=== PATIENT | male | born 1975 | race Caucasian/White ===

== ENCOUNTER 2024-11-15 16:26 | Emergency (ER) | payer BC, SELFPAY ==
[2024-11-15 16:26] VITALS: BMI 31.0
[2024-11-15 16:29] VITALS: BP 102/83
[2024-11-15] MEDS: PERCOCET 5/325 1 TABLET PO (17:38)
[2024-11-15] MEDS: TORADOL 30 MG IM (17:40)
--- NOTE | 2024-11-15 18:38 | ED.GENMED ---
History of Present Illness
<Alfonso Olivera Jr., PA-C - Last Filed: 11/15/24 19:07>
General
Chief Complaint: Musculo-Skeletal Complaint
Source: patient
Exam Limitations: none
Time Seen by Provider: 11/15/24 17:09
Nursing documentation reviewed up to this point in time: agreed with
History of Present Illness
History of Present Illness:
49-year-old male past medical history of hyperlipidemia presenting to the emergency department today with concerns of left-sided rib discomfort after falling through his attic floor hitting the rafters with his left ribs and also left arm. Pain is
mainly to the left lateral rib area. Denies any significant chest pain shortness of breath nausea vomiting no head trauma no neck pain.
Past History
<Alfonso Olivera Jr., PA-C - Last Filed: 11/15/24 19:07>
Past History
ED Past Medical History: Hypercholesterolemia and Psychiatric (anxiety-no meds)
ED Past Surgical History: None
Social History
Tobacco: Non-smoker
Alcohol: Occasional
Personal:
Living: with family
Employment: Employed
Review of Systems
<NORTH Lion Jr. Last Filed: 11/15/24 19:07>
Review of Systems
Allergies reviewed?: Yes
All Other Systems: ROS reviewed and negative except as documented in HPI and ROS
Phy Exam
<Alfonso Olivera Jr., PA-C - Last Filed: 11/15/24 19:07>
Physical Exam
Physical Exam:
GENERAL: Alert , in no apparent distress
EYE: pupils equal and reactive
NECK: Supple, no significant adenopathy.
ENT: o/p clr, mmm.
CARDIAC: Regular rate and rhythm .
LUNGS: Left lateral axillary rib pain slight abrasion to the overlying skin. Tender palpation no crepitus. Clear breath sounds bilaterally, no acute respiratory distress, no wheezes/rales/rhonchi
ABDOMEN: Soft, without focal tenderness, no r/g, no cvat
NEUROLOGICAL: Alert and oriented, no focal neuro deficits
SKIN: Warm and dry, skin intact.
MUSCULOSKELETAL: No edema, well perfused.
PSYCH: Normal and appropriate interaction.
Course
<Alfonso Olivera Jr., NORTH - Last Filed: 11/15/24 19:07>
Orders/Labs/Results
Orders:
Orders
11/15/24 16:35
CR Ribs-left 3 Vw W/pa Chest Urgent
Comment:
Reason For Exam: pain
Humerus, Left 2 Views [CR Humerus - Left Min 2 Views*] Urgent
Comment:
Reason For Exam: pain
11/15/24 16:36
Shoulder, Left, Trauma CR [CR Shoulder, Trauma - Left] Urgent
Comment:
Reason For Exam: pain
11/15/24 17:28
Ketorolac [Toradol] 30 mg IM NOW STA
Oxycodone/Acetaminophen [Percocet 5/325] 1 tablet PO NOW STA
Incentive Spirometry [Rx Incentive Spirometry] [RESP] Urgent
Frequency: q1h while awake
11/15/24 18:34
BMP [Basic Metabolic Panel] Urgent
CBC/With Diff [Complete Blood Count/With Diff] Urgent
Morphine Sulfate 4 mg IV NOW STA
Vital Signs
Initial and Last Documented VS:
Initial Vital Signs
Temp Pulse Resp BP Pulse Ox
98.4 F 60 18 102/83 98
11/15/24 16:29 11/15/24 16:29 11/15/24 16:29 11/15/24 16:29 11/15/24 16:29
Last Documented Vital Signs
Temp Pulse Resp BP Pulse Ox
98.4 F 60 18 102/83 97
11/15/24 16:29 11/15/24 16:29 11/15/24 16:29 11/15/24 16:29 11/15/24 17:48
<Hira Guerrero DO - Last Filed: 11/15/24 18:42>
Orders/Labs/Results
Orders:
Orders
11/15/24 16:35
CR Ribs-left 3 Vw W/pa Chest Urgent
Comment:
Reason For Exam: pain
Humerus, Left 2 Views [CR Humerus - Left Min 2 Views*] Urgent
Comment:
Reason For Exam: pain
11/15/24 16:36
Shoulder, Left, Trauma CR [CR Shoulder, Trauma - Left] Urgent
Comment:
Reason For Exam: pain
11/15/24 17:28
Ketorolac [Toradol] 30 mg IM NOW STA
Oxycodone/Acetaminophen [Percocet 5/325] 1 tablet PO NOW STA
Incentive Spirometry [Rx Incentive Spirometry] [RESP] Urgent
Frequency: q1h while awake
11/15/24 18:34
BMP [Basic Metabolic Panel] Urgent
CBC/With Diff [Complete Blood Count/With Diff] Urgent
Morphine Sulfate 4 mg IV NOW STA
Vital Signs
Initial and Last Documented VS:
Initial Vital Signs
Temp Pulse Resp BP Pulse Ox
98.4 F 60 18 102/83 98
11/15/24 16:29 11/15/24 16:29 11/15/24 16:29 11/15/24 16:29 11/15/24 16:29
Last Documented Vital Signs
Temp Pulse Resp BP Pulse Ox
98.4 F 60 18 102/83 97
11/15/24 16:29 11/15/24 16:29 11/15/24 16:29 11/15/24 16:29 11/15/24 17:48
<Alfonso Olivera Jr. PAAdonisC - Last Filed: 11/15/24 19:07>
MDM/Problems Addressed
MDM/Problems Addressed:
49-year-old male presenting to the emergency department today with concerns of left lateral rib discomfort after falling through the floor of an attic. Patient is found to have 4 rib fractures here nondisplaced no signs of significant lung injury
vital signs are normal pulse ox is normal. No evidence of injury to his shoulder or arm. Concerning for rib fractures plan to trauma transfer to [facility]. Was given pain medications here as well as incentive spirometer. Otherwise stable
throughout ER stay.
<Alfonso Olivera Jr., PA-C - Last Filed: 11/15/24 19:07>
*Critical Care Note
Total Time (30-74mins, 75-104mins- exclusive of procedures): Not Applicable
ED Attending Note
<Alfonso Olivera Jr., PA-C - Last Filed: 11/15/24 19:07>
-
Portions of this chart may have been created with voice recognition software.� Occasional wrong word or��sound alike� substitutions may have occurred due to the inherent limitations of voice recognition software.
<Hira Guerrero DO - Last Filed: 11/15/24 18:42>
ED Attending Note
Patient seen and examined by attending physician: Yes
I performed the substantive portion of visit, reviewed & personally made and approve the management plan that is documented in note by myself or JEAN.: Yes
ED Attending Note:
49-year-old male presents to the emergency room after falling through the drywall ceiling and his left chest striking the rafters. He was able to prevent himself from falling completely through. Ultimately got himself down on a ladder. He denies
any head injury, neck injury. He denies any abdominal pain. Patient has pain with deep inspiration.
General: Awake, Alert, Oriented X3. No acute distress.
Vitals: unremarkable
Head: Atraumatic
Eyes: Pupils equal, EOMI
Throat: Airway intact, no exudates
Neck: Trachea midline
Thorax: Significant tenderness to palpation left lateral thorax. No crepitance
Lungs: Clear and equal b/l
Heart: Regular rate, no murmurs
Abd: Soft, Nontender, No pulsatile mass
Neuro: Nonfocal
Skin: Warm, dry, no rash
Extremities: pulses equal b/l, no edema
Patient had plain films obtained through triage. For fractures noted by radiology.
Low suspicion to no suspicion for intra-abdominal injury. Will attempt to provide analgesia and see if the patient's pain control will be adequate for discharge.
Patient informs us that he feels his pain is too severe for him to be discharged home. Ed will investigate transfer to trauma center.
Discharge Plan
Departure
Patient Disposition: Acute Care Hospital
Date of Disposition: 11/15/24
Time of Disposition: 19:06
Patient with high blood pressure during this ER visit?: No
Condition: Good
Covid-19: Not Applicable
Discharge Problem:
Multiple fractures of ribs
Prescriptions:
No Action
atorvastatin 10 mg Tablet
10 mg PO DAILY
metoprolol succinate 25 mg tablet extended release 24 hr
25 mg PO DAILY Qty: 30 0RF
Referrals:
Kathia Nielsen DO [Family Provider] -
Hospital Transfer
Other hospital: [facility]
I certify that the patient requires transfer: Yes
Discussed case with accepting physician: Yes
Reason for transfer: higher level of care, availability of service and specialties available
Interventions
Interventions:
*Risk Screen - Suicide Last Done: 11/15/24 16:29
*General Assessment Last Done: 11/15/24 16:29
*Neglect/Abuse Screening Last Done: 11/15/24 16:38
*ED- Fall Risk Assessment Last Done: 11/15/24 16:29
*ED COVID-19 Vaccine History Last Done: 11/15/24 16:29
ED-Musculoskeletal Assessment Last Done: 11/15/24 16:38
Discharge Date and Time
Print Language: FIJIAN
[2024-11-15] MEDS: MORPHINE SULFATE 4 MG IV (19:09)
[2024-11-15 19:12] VITALS: BP 138/99
[2024-11-15 19:13] LABS: % Basophils 0.2 % (0-2); % Eosinophils 0.2 % (0-6); % Immature Granulocytes 0.7 % (0-0.5); % Lymphocytes 4.8 % (20.5-51.1); % Monocytes 5.6 % (1.7-9.3); % Neutrophils 88.5 % (42.2-75.2); Absolute Immature Granulocytes 0.1 10^3/uL (0-0.05); Absolute Lymphocytes 0.8 10^3/uL (1.2-3.4); Absolute Monocytes 0.9 10^3/uL (0.1-0.6); Absolute Neutrophils 14.5 10^3/uL (1.4-6.5); Hemoglobin 14.7 g/dL (13.0-18.0); Mean Corp Hgb Conc. 34.2 g/dL (33.0-37.0); Mean Corpuscular Hgb 30.9 pg (27.0-31.0); Mean Corpuscular Volume 90.3 fL (80.0-94.0); Nucleated Red Blood Cells % 0 % (-); Platelet Count 222 10^3/uL (130-400); Red Blood Cell Count 4.76 10^6/uL (4.70-6.10); Red Cell Dist. Width 12.9 % (11.5-14.5); White Blood Cell Count 16.4 10^3/uL (4.8-10.8)
[2024-11-15 19:32] LABS: Blood Urea Nitrogen 23 mg/dl (9-20); Calcium 9.6 mg/dl (8.4-10.2); Carbon Dioxide 22 mmol/L (22-30); Chloride 103 mmol/L (98-107); Estimated Creatinine Clearance 109 ml/min; Glucose 106 mg/dl (70-99); Sodium 135 mmol/L (135-145); eGFR > 60.00
== END 2024-11-15 19:39 | disposition short-term general hospital (02) ==
LOC: EMR 16:26
PROVIDERS: Physician Assistant; EMERGENCY PHYSICIAN Emergency Medicine; FAMILY PHYSICIAN Internal Medicine
DX: S22.42XA Multiple fractures of ribs, left side, initial encounter for closed fracture (principal); S20.312A Abrasion of left front wall of thorax, initial encounter; W13.8XXA Fall from, out of or through other building or structure, initial encounter; E78.00 Pure hypercholesterolemia, unspecified; F41.9 Anxiety disorder, unspecified
CPT/HCPCS: 99285; 96374; 96372; 71101; 73030; 73060; 80048; 85025